=== PATIENT | female | born 1970 | race Caucasian/White ===

== ENCOUNTER 2021-12-13 21:48 | Emergency (ER) | payer OTHER ==
[2021-12-13 21:54] VITALS: RESP 20; TEMP 98.2; BMI 29.3
[2021-12-13] MEDS ORDERED: CLOPIDOGREL BISULFATE 300 MG TABLET PO ONE (22:08)
[2021-12-13] MEDS ORDERED: amLODIPine BESYLATE 10 MG TABLET (FP) PO ONE (22:18)
[2021-12-13] MEDS ORDERED: ONDANSETRON 4 MG/2 ML VIAL IVPUSH ONE (22:29)
[2021-12-13] MEDS ORDERED: IBUPROFEN 600 MG TABLET (FP) PO ONE ×2 (22:48→23:19)
[2021-12-13] MEDS ORDERED: METHOCARBAMOL 500 MG TABLET PO ONE (22:48)
[2021-12-13] MEDS ORDERED: METOCLOPRAMIDE HCL INJECTION 10 MG/2 ML VIAL IVPB ONE (22:51)
[2021-12-13 23:01] VITALS: BP 135/86; PULSE 85
[2021-12-13] MEDS ORDERED: METHOCARBAMOL 500 MG TABLET ONE (23:19)
[2021-12-13] MEDS ORDERED: METOCLOPRAMIDE HCL INJECTION 10 MG/2 ML VIAL ONE (23:19)
[2021-12-14] MEDS ORDERED: METOCLOPRAMIDE HCL INJECTION 10 MG/2 ML VIAL IM ONE (00:03)
[2021-12-14 00:05] LABS: BASO % 0.4 % (0-2.0); EOS % 1.6 % (0-4.5); HEMOGLOBIN 12.9 GM/dL (10.7-15.3); LYMPH % 27.7 % (8-40); MCH 28.1 pg (25.7-33.7); MCHC 33.9 g/dl (32.0-36.0); MEAN PLT VOLUME 8.9 fl (7.5-11.1); MONO % 9.1 % (3.8-10.2); NEUT % 61.2 % (42.8-82.8); PLATELET COUNT 279 10^3/uL (134-434); RBC 4.58 M/mm3 (3.60-5.2); RDW 13.4 % (11.6-15.6); WHITE BLOOD COUNT 8.3 K/mm3 (4.0-10.0)
[2021-12-14 00:26] LABS: CALCIUM 9.1 mg/dL (8.5-10.1)
[2021-12-14 00:27] LABS: ALBUMIN 3.9 g/dl (3.4-5.0); BLOOD UREA NITROGEN 12.5 mg/dL (7-18)
[2021-12-14 00:30] LABS: CREATININE 0.8 mg/dL (0.55-1.3); INR 0.92 (0.83-1.09); PROTHROMBIN TIME (PATIENT) 10.6 SEC (9.7-13.0)
[2021-12-14 00:31] LABS: TOT PROT 7.5 g/dl (6.4-8.2)
[2021-12-14 00:41] LABS: BILIRUBIN,TOTAL 0.3 mg/dL (0.2-1)
== END 2021-12-14 01:05 | disposition home or self-care (01) ==
LOC: JER 21:48
PROC: 3E033GC Introduction of Other Therapeutic Substance into Peripheral Vein, Percutaneous Approach (ICD-10-PCS; principal; 2021-12-13)
PROC: 3E023GC Introduction of Other Therapeutic Substance into Muscle, Percutaneous Approach (ICD-10-PCS; 2021-12-13)
DX: R51.9 Headache, unspecified (principal); R06.02 Shortness of breath; M79.602 Pain in left arm; R07.9 Chest pain, unspecified
CPT/HCPCS: 36415; 71046-TC-FY; 80053; 84439; 84443; 84484; 85025; 85610; 93005; 93010; 99285-25

== ENCOUNTER 2022-01-24 16:13 | Inpatient (IN) | payer OTHER ==
[2022-01-24 16:50] VITALS: BMI 30.9
[2022-01-24] MEDS ORDERED: DEXAMETHASONE SOD PHOSPHATE 10 MG/1 ML VIAL IVPUSH ONE (17:03)
[2022-01-24] MEDS ORDERED: LACTATED RINGERS SOLUTION 1000 ML INFUS.BAG IV ONE (17:07)
[2022-01-24] MEDS ORDERED: KETOROLAC TROMETHAMINE 15 MG/ML VIAL IVPUSH ONE (17:07)
[2022-01-24] MEDS ORDERED: MAGNESIUM SULF 50% (8.12 MEQ/2 ML-1 GM VIAL) IVPB ONE (17:07)
[2022-01-24] MEDS ORDERED: ALBUTEROL SO4 2.5/IPRATROPIUM 0.5 INH SOL 3 ML VIAL.NEB. NEB ONE (17:08)
[2022-01-24] MEDS ORDERED: DEXAMETHASONE SOD PHOSPHATE 10 MG/1 ML VIAL ONE (17:08)
[2022-01-24] MEDS: ALBUTEROL SO4 2.5/IPRATROPIUM 0.5 INH SOL 3 ML VIAL.NEB. NEB SCH ×3 (17:32→18:53)
[2022-01-24] MEDS ORDERED: ACETAMINOPHEN 1000 MG/100 ML BAG IVPB ONE (17:37)
[2022-01-24] MEDS ORDERED: MAGNESIUM 1GM/D5W - 1 GM/100 ML IVPB IVPB ONE (17:38)
[2022-01-24] MEDS ORDERED: KETOROLAC TROMETHAMINE 15 MG/ML VIAL ONE (17:38)
[2022-01-24 18:06] LABS: VENOUS BASE EXCESS 1.8 mmol/L (-2-2); VENOUS O2 SATURATION 85.8 % (70-80); VENOUS PCO2 41.1 mmHg (38-52); VENOUS PH 7.425 (7.310-7.410)
[2022-01-24 18:11] LABS: BASO % 0.4 % (0-2.0); EOS % 1.5 % (0-4.5); HEMATOCRIT 39.7 % (32.4-45.2); HEMOGLOBIN 13.5 GM/dL (10.7-15.3); LYMPH % 16.5 % (8-40); MCH 28.3 pg (25.7-33.7); MCHC 33.9 g/dl (32.0-36.0); MEAN CELL VOLUME 83.3 fl (80-96); MEAN PLT VOLUME 8.6 fl (7.5-11.1); MONO % 11.6 % (3.8-10.2); PLATELET COUNT 273 10^3/uL (134-434); RBC 4.77 M/mm3 (3.60-5.2); RDW 13.8 % (11.6-15.6); WHITE BLOOD COUNT 7.3 K/mm3 (4.0-10.0)
[2022-01-24 18:17] LABS: INR 0.97 (0.83-1.09); PROTHROMBIN TIME (PATIENT) 11.1 SEC (9.7-13.0)
[2022-01-24 18:20] LABS: ACTIVATED PTT 31.3 SECONDS (25.2-36.5)
[2022-01-24 18:33] LABS: CHLORIDE 102 mmol/L (98-107); SODIUM 136 mmol/L (136-145)
[2022-01-24 18:36] LABS: ALBUMIN 4.2 g/dl (3.4-5.0); ANION GAP 9 MMOL/L (8-16); BLOOD UREA NITROGEN 9.6 mg/dL (7-18); CO2 26 mmol/L (21-32); GLUCOSE,RANDOM 99 mg/dL (74-106)
[2022-01-24 18:39] LABS: CREATININE 0.8 mg/dL (0.55-1.3); SGOT/AST 45 U/L (15-37); SGPT/ALT 53 U/L (13-61)
[2022-01-24 18:41] LABS: BILIRUBIN,TOTAL 0.3 mg/dL (0.2-1)
[2022-01-24 18:42] LABS: ALK PHOS 91 U/L (45-117)
[2022-01-24] MEDS ORDERED: ACETAMINOPHEN INJECTION 100 ML IVPB ONE (18:54)
[2022-01-24] MEDS ORDERED: ALBUTEROL SO4 HFA INHALER IH PRN (22:07)
[2022-01-25] MEDS ORDERED: ACETAMINOPHEN 500 MG TABLET (FP) PO PRN (00:41)
[2022-01-25 06:00] LABS: EPI CELLS >36 /uL (0-25.1); HYALINE CASTS 5 /uL (0-3.1); URINE APPEARANCE CLOUDY; URINE BACTERIA 3483 /uL (0-1359); URINE BILIRUBIN NEGATIVE (NEGATIVE); URINE COLOR YELLOW; URINE GLUCOSE (UA) 3+ (NEGATIVE); URINE KETONE TRACE (NEGATIVE); URINE LEUK ESTERASE NEGATIVE (NEGATIVE); URINE NITRITE NEGATIVE (NEGATIVE); URINE PROTEIN TRACE (NEGATIVE); URINE RBC 14 /uL (0-23.9); URINE UROBILINOGEN 0.2 mg/dL (0.2-1.0); URINE WBC 16 /uL (0-25.8)
[2022-01-25] MEDS ORDERED: LEVOTHYROXINE NA 88 MCG TABLET (FP) ONE (07:20)
[2022-01-25] MEDS: LEVOTHYROXINE NA 88 MCG TABLET (FP) PO SCH (07:40)
[2022-01-25] MEDS ORDERED: ALBUTEROL SO4 2.5/IPRATROPIUM 0.5 INH SOL 3 ML VIAL.NEB. NEB ONE ×4 (07:45→22:52)
[2022-01-25 08:07] LABS: BASO % 0.3 % (0-2.0); HEMATOCRIT 37.2 % (32.4-45.2); HEMOGLOBIN 12.3 GM/dL (10.7-15.3); LYMPH % 9.8 % (8-40); MCH 27.7 pg (25.7-33.7); MCHC 33.1 g/dl (32.0-36.0); MEAN CELL VOLUME 83.7 fl (80-96); MEAN PLT VOLUME 9.4 fl (7.5-11.1); MONO % 3.1 % (3.8-10.2); NEUT % 86.8 % (42.8-82.8); PLATELET COUNT 282 10^3/uL (134-434); RBC 4.45 M/mm3 (3.60-5.2); WHITE BLOOD COUNT 7.5 K/mm3 (4.0-10.0)
[2022-01-25] MEDS: ALBUTEROL SO4 2.5/IPRATROPIUM 0.5 INH SOL 3 ML VIAL.NEB. NEB SCH ×4 (08:11→22:56)
[2022-01-25 08:38] LABS: CALCIUM 8.7 mg/dL (8.5-10.1)
[2022-01-25 08:39] LABS: ALBUMIN 3.8 g/dl (3.4-5.0); BLOOD UREA NITROGEN 14.8 mg/dL (7-18); MAGNESIUM 2.6 mg/dL (1.8-2.4)
[2022-01-25 08:41] LABS: CREATININE 0.7 mg/dL (0.55-1.3); PHOSPHOROUS 2.4 mg/dL (2.5-4.9)
[2022-01-25 08:42] LABS: BILIRUBIN,TOTAL 0.7 mg/dL (0.2-1)
[2022-01-25 08:44] LABS: TOT PROT 7.2 g/dl (6.4-8.2)
[2022-01-25] MEDS ORDERED: ENOXAPARIN NA (PORCINE) 40 MG/0.4 ML DISP.SYRIN SQ ONE (08:55)
[2022-01-25] MEDS ORDERED: amLODIPine BESYLATE 5 MG TABLET (FP) ONE (08:55)
[2022-01-25] MEDS: ENOXAPARIN NA (PORCINE) 40 MG/0.4 ML DISP.SYRIN SQ SCH (10:13)
[2022-01-25] MEDS: amLODIPine BESYLATE 5 MG TABLET (FP) PO SCH (10:13)
[2022-01-25] MEDS: BUDESONIDE/FORMETEROL FUMARATE 80/4.5 mcg INHALER IH SCH ×2 (11:07→22:56)
[2022-01-25] MEDS ORDERED: predniSONE 20 MG TABLET (UD) ONE (16:16)
[2022-01-25] MEDS ORDERED: predniSONE 20 MG TABLET (UD) PO SCH (17:00)
[2022-01-25] MEDS ORDERED: ROSUVASTATIN CA 20 MG TABLET ONE (22:52)
[2022-01-25] MEDS: ROSUVASTATIN CA 20 MG TABLET PO SCH (22:56)
[2022-01-26] MEDS: LEVOTHYROXINE NA 88 MCG TABLET (FP) PO SCH (06:11)
[2022-01-26 07:56] LABS: HEMATOCRIT 35.8 % (32.4-45.2); HEMOGLOBIN 12.1 GM/dL (10.7-15.3); MCH 28.5 pg (25.7-33.7); MCHC 33.8 g/dl (32.0-36.0); MEAN CELL VOLUME 84.2 fl (80-96); MEAN PLT VOLUME 8.9 fl (7.5-11.1); PLATELET COUNT 281 10^3/uL (134-434); RBC 4.24 M/mm3 (3.60-5.2); RDW 14.1 % (11.6-15.6); WHITE BLOOD COUNT 10.2 K/mm3 (4.0-10.0)
[2022-01-26 08:16] LABS: BLOOD UREA NITROGEN 21.7 mg/dL (7-18); CALCIUM 8.6 mg/dL (8.5-10.1)
[2022-01-26 08:20] LABS: CREATININE 0.8 mg/dL (0.55-1.3)
[2022-01-26] MEDS: ALBUTEROL SO4 2.5/IPRATROPIUM 0.5 INH SOL 3 ML VIAL.NEB. NEB SCH ×4 (09:06→21:09)
[2022-01-26] MEDS: amLODIPine BESYLATE 5 MG TABLET (FP) PO SCH (09:21)
[2022-01-26] MEDS: ENOXAPARIN NA (PORCINE) 40 MG/0.4 ML DISP.SYRIN SQ SCH (09:21)
[2022-01-26] MEDS: BUDESONIDE/FORMETEROL FUMARATE 80/4.5 mcg INHALER IH SCH ×2 (10:18→21:30)
[2022-01-26] MEDS ORDERED: DEXAMETHASONE 4 MG TABLET (FP) PO SCH (12:45)
[2022-01-26] MEDS ORDERED: methylPREDNISolone NA SUCC 40 MG/1 ML VIAL IVPUSH SCH (15:00)
[2022-01-26] MEDS: guaiFENesin/CODEINE 5 ML UNIT-DOSE CUPS PO PRN ×2 (15:11→21:30)
[2022-01-26] MEDS: methylPREDNISolone NA SUCC 40 MG/1 ML VIAL IVPUSH SCH (17:32)
[2022-01-26] MEDS ORDERED: DOXYCYCLINE HYCLATE 100 MG CAPSULE PO SCH (18:00)
[2022-01-26] MEDS: ROSUVASTATIN CA 20 MG TABLET PO SCH (21:30)
[2022-01-27] MEDS: LEVOTHYROXINE NA 88 MCG TABLET (FP) PO SCH (06:15)
[2022-01-27] MEDS: methylPREDNISolone NA SUCC 40 MG/1 ML VIAL IVPUSH SCH (06:15)
[2022-01-27] MEDS: ALBUTEROL SO4 2.5/IPRATROPIUM 0.5 INH SOL 3 ML VIAL.NEB. NEB SCH ×3 (08:01→15:49)
[2022-01-27 08:06] LABS: HEMATOCRIT 35.7 % (32.4-45.2); HEMOGLOBIN 12.2 GM/dL (10.7-15.3); MCH 28.9 pg (25.7-33.7); MCHC 34.2 g/dl (32.0-36.0); MEAN CELL VOLUME 84.4 fl (80-96); MEAN PLT VOLUME 8.7 fl (7.5-11.1); PLATELET COUNT 302 10^3/uL (134-434); RBC 4.23 M/mm3 (3.60-5.2); RDW 13.6 % (11.6-15.6); WHITE BLOOD COUNT 10.6 K/mm3 (4.0-10.0)
[2022-01-27 08:22] LABS: BLOOD UREA NITROGEN 20.4 mg/dL (7-18); CALCIUM 8.6 mg/dL (8.5-10.1)
[2022-01-27 08:26] LABS: CREATININE 0.7 mg/dL (0.55-1.3)
[2022-01-27] MEDS: amLODIPine BESYLATE 5 MG TABLET (FP) PO SCH (09:42)
[2022-01-27] MEDS: ENOXAPARIN NA (PORCINE) 40 MG/0.4 ML DISP.SYRIN SQ SCH (09:42)
[2022-01-27] MEDS: BUDESONIDE/FORMETEROL FUMARATE 80/4.5 mcg INHALER IH SCH (09:42)
[2022-01-27 11:59] VITALS: RESP 20
[2022-01-27 14:22] VITALS: BP 122/77; PULSE 100; TEMP 98.2
== END 2022-01-27 16:42 | disposition home or self-care (01) | DRG 141 ==
LOC: JER 16:13 → INTOOBSV 18:55 → JERBED 18:55 → J4S 01-25 23:23 → OBSVTOIN 01-26 14:02
PROVIDERS: ADMIT Internal Medicine; ATTEND Internal Medicine
DX: J45.901 Unspecified asthma with (acute) exacerbation (principal); E03.9 Hypothyroidism, unspecified; I10 Essential (primary) hypertension; E78.5 Hyperlipidemia, unspecified; B97.4 Respiratory syncytial virus as the cause of diseases classified elsewhere; E05.90 Thyrotoxicosis, unspecified without thyrotoxic crisis or storm
CPT/HCPCS: 0241U-QW; 36415; 71045-TC-FY; 80048; 80053; 81003; 82550; 82553; 82803; 83036; 83605; 83735; 84100; 84443; 84484; 85025; 85027; 85610; 85730; 86850; 86900; 86901; 87040; 87086; 93005; 93010; 94640; 99285-25; G0378; J1100

== ENCOUNTER 2022-07-10 20:20 | Emergency (ER) | payer OTHER ==
[2022-07-10 20:25] VITALS: BMI 30.2
[2022-07-10] MEDS ORDERED: SODIUM CHLORIDE 0.9% 500 ML INFUS.BAG IV ONE (21:30)
[2022-07-10] MEDS ORDERED: ACETAMINOPHEN 1000 MG/100 ML BAG IVPB ONE (21:30)
[2022-07-10] MEDS ORDERED: MAG HYDROX/AL HYDROX/SIMETH 30 ML UNIT-DOSE CUP PO ONE (21:30)
[2022-07-10] MEDS ORDERED: FAMOTIDINE 20 MG/50 ML IVPB 20 MG/50 ML MG IVPB ONE ×2 (21:30→21:55)
[2022-07-10 21:51] LABS: BASO % 0.6 % (0-2.0); EOS % 3.4 % (0-4.5); HEMATOCRIT 38.3 % (32.4-45.2); HEMOGLOBIN 13.2 GM/dL (10.7-15.3); MCHC 34.6 g/dl (32.0-36.0); MEAN CELL VOLUME 80.9 fl (80-96); MEAN PLT VOLUME 9.4 fl (7.5-11.1); MONO % 6.7 % (3.8-10.2); NEUT % 68.3 % (42.8-82.8); PLATELET COUNT 272 10^3/uL (134-434); RBC 4.73 M/mm3 (3.60-5.2); RDW 13.4 % (11.6-15.6)
[2022-07-10] MEDS ORDERED: ACETAMINOPHEN INJECTION 100 ML IVPB ONE (21:54)
[2022-07-10] MEDS ORDERED: MAG HYDROX/AL HYDROX/SIMETH 30 ML UNIT-DOSE CUP ONE (21:55)
[2022-07-10 22:25] LABS: CALCIUM 9.4 mg/dL (8.5-10.1)
[2022-07-10 22:26] LABS: ALBUMIN 4.2 g/dl (3.4-5.0); BLOOD UREA NITROGEN 13.7 mg/dL (7-18); MAGNESIUM 2.2 mg/dL (1.8-2.4)
[2022-07-10 22:30] LABS: CREATININE 0.9 mg/dL (0.55-1.3)
[2022-07-10 22:32] LABS: BILIRUBIN,TOTAL 0.3 mg/dL (0.2-1)
[2022-07-10 22:44] LABS: EPI CELLS >36 /uL (0-25.1); HYALINE CASTS 0 /uL (0-3.1); URINE APPEARANCE TURBID; URINE BACTERIA 961 /uL (0-1359); URINE BILIRUBIN NEGATIVE (NEGATIVE); URINE COLOR YELLOW; URINE GLUCOSE (UA) NEGATIVE (NEGATIVE); URINE KETONE NEGATIVE (NEGATIVE); URINE LEUK ESTERASE NEGATIVE (NEGATIVE); URINE NITRITE NEGATIVE (NEGATIVE); URINE PROTEIN NEGATIVE (NEGATIVE); URINE RBC 51 /uL (0-23.9); URINE UROBILINOGEN 0.2 mg/dL (0.2-1.0); URINE WBC 17 /uL (0-25.8)
[2022-07-11 01:52] VITALS: BP 118/52; PULSE 78; RESP 18; TEMP 98.1
== END 2022-07-11 04:15 | disposition home or self-care (01) ==
LOC: JER 20:20
PROC: 3E033GC Introduction of Other Therapeutic Substance into Peripheral Vein, Percutaneous Approach (ICD-10-PCS; principal; 2022-07-10)
PROC: 3E033NZ Introduction of Analgesics, Hypnotics, Sedatives into Peripheral Vein, Percutaneous Approach (ICD-10-PCS; 2022-07-10)
DX: R10.13 Epigastric pain (principal); R11.2 Nausea with vomiting, unspecified; R19.7 Diarrhea, unspecified
CPT/HCPCS: 36415; 74177-TC; 76705-TC; 80053; 81003; 83605; 83690; 83735; 85025; 93005; 93010; 99285-25

== ENCOUNTER 2023-03-05 18:13 | Observation (INO) | payer OTHER ==
[2023-03-05] MEDS ORDERED: FAMOTIDINE 20 MG/50 ML IVPB 20 MG/50 ML MG IVPB ONE ×2 (19:54→20:57)
[2023-03-05] MEDS ORDERED: LACTATED RINGERS SOLUTION 1000 ML INFUS.BAG IV ONE (19:54)
[2023-03-05] MEDS ORDERED: ONDANSETRON 4 MG/2 ML VIAL IVPUSH ONE ×2 (19:54→21:07)
[2023-03-05 20:34] LABS: BASO % 0.3 % (0-2.0); EOS % 0.2 % (0-4.5); HEMATOCRIT 42.8 % (32.4-45.2); LYMPH % 3.8 % (8-40); MCH 27.5 pg (25.7-33.7); MCHC 32.7 g/dl (32.0-36.0); MEAN CELL VOLUME 84.2 fl (80-96); MEAN PLT VOLUME 9.6 fl (7.5-11.1); MONO % 2.8 % (3.8-10.2); NEUT % 92.9 % (42.8-82.8); PLATELET COUNT 242 10^3/uL (134-434); RBC 5.08 M/mm3 (3.60-5.2); RDW 13.3 % (11.6-15.6); WHITE BLOOD COUNT 11.1 K/mm3 (4.0-10.0)
[2023-03-05 20:47] LABS: EPI CELLS >36 /uL (0-25.1); HYALINE CASTS 7 /uL (0-3.1); URINE APPEARANCE CLOUDY; URINE BACTERIA 4791 /uL (0-1359); URINE BILIRUBIN NEGATIVE (NEGATIVE); URINE COLOR YELLOW; URINE GLUCOSE (UA) NEGATIVE (NEGATIVE); URINE KETONE 1+ (NEGATIVE); URINE LEUK ESTERASE NEGATIVE (NEGATIVE); URINE NITRITE NEGATIVE (NEGATIVE); URINE PROTEIN 1+ (NEGATIVE)
[2023-03-05 20:53] LABS: POTASSIUM 4.3 mmol/L (3.5-5.1)
[2023-03-05 20:56] LABS: BLOOD UREA NITROGEN 13.2 mg/dL (7-18)
[2023-03-05 20:57] LABS: CREATININE 0.8 mg/dL (0.55-1.3)
[2023-03-05] MEDS ORDERED: ONDANSETRON 4 MG/2 ML VIAL ONE (20:57)
[2023-03-05 21:00] LABS: BILIRUBIN,TOTAL 0.5 mg/dL (0.2-1); TOT PROT 7.9 g/dl (6.4-8.2)
[2023-03-05] MEDS ORDERED: METOCLOPRAMIDE HCL INJECTION 10 MG/2 ML VIAL IVPUSH ONE (21:02)
[2023-03-05 22:53] LABS: URINE RBC 191.9 /uL (0-23.9); URINE WBC 59.2 /uL (0-25.8)
[2023-03-06] MEDS ORDERED: LACTATED RINGERS SOLUTION 1000 ML INFUS.BAG IV ONE (01:05)
[2023-03-06] MEDS ORDERED: CEFTRIAXONE 1 GM/50 ML BAG ONE (01:09)
[2023-03-06] MEDS ORDERED: ACETAMINOPHEN 1000 MG/100 ML BAG IVPB ONE (01:55)
[2023-03-06] MEDS ORDERED: ACETAMINOPHEN INJECTION 100 ML IVPB ONE (02:17)
[2023-03-06] MEDS ORDERED: KETOROLAC TROMETHAMINE 15 MG/ML VIAL IVPUSH PRN (02:56)
[2023-03-06] MEDS ORDERED: ACETAMINOPHEN 1000 MG/100 ML BAG IVPB PRN (03:02)
[2023-03-06] MEDS: DEXTROSE 5%-NORMAL SALINE 1,000 ML IV SCH (03:21)
[2023-03-06 05:46] VITALS: BMI 32.1
[2023-03-06] MEDS ORDERED: ALBUTEROL SO4 0.083% IH SOL 2.5 MG/3 ML VIAL.NEB. NEB PRN (07:52)
[2023-03-06] MEDS: amLODIPine BESYLATE 5 MG TABLET (FP) PO SCH (09:20)
[2023-03-06] MEDS: LEVOTHYROXINE NA 88 MCG TABLET (FP) PO SCH (09:20)
[2023-03-06] MEDS: BUDESONIDE/FORMETEROL FUMARATE 80/4.5 mcg INHALER IH SCH ×2 (09:20→21:46)
[2023-03-06 09:37] LABS: INR 1.12 (0.83-1.09)
[2023-03-06 09:39] LABS: ACTIVATED PTT 27.7 SECONDS (25.2-36.5)
[2023-03-06 09:42] LABS: BASO % 0.2 % (0-2.0); EOS % 0.1 % (0-4.5); HEMATOCRIT 37.1 % (32.4-45.2); HEMOGLOBIN 12.4 GM/dL (10.7-15.3); LYMPH % 19.1 % (8-40); MCH 27.9 pg (25.7-33.7); MCHC 33.5 g/dl (32.0-36.0); MEAN CELL VOLUME 83.2 fl (80-96); MEAN PLT VOLUME 9.5 fl (7.5-11.1); NEUT % 75.6 % (42.8-82.8); PLATELET COUNT 227 10^3/uL (134-434); RBC 4.45 M/mm3 (3.60-5.2); RDW 13.4 % (11.6-15.6); WHITE BLOOD COUNT 6.8 K/mm3 (4.0-10.0)
[2023-03-06] MEDS ORDERED: CEFTRIAXONE 1 GM in DEXTROSE 5%-WATER - 50 ML IVPB SCH (10:00)
[2023-03-06 10:35] LABS: POTASSIUM 3.4 mmol/L (3.5-5.1)
[2023-03-06 10:48] LABS: CALCIUM 7.9 mg/dL (8.5-10.1)
[2023-03-06 10:49] LABS: BLOOD UREA NITROGEN 11.2 mg/dL (7-18); MAGNESIUM 2.2 mg/dL (1.8-2.4)
[2023-03-06 10:51] LABS: CREATININE 0.8 mg/dL (0.55-1.3); PHOSPHOROUS 3.3 mg/dL (2.5-4.9)
[2023-03-06] MEDS ORDERED: POTASSIUM CHLORIDE TABS 20 MEQ TABLET.ER (FP) PO ONE (14:45)
[2023-03-06] MEDS: HEPARIN NA (PORCINE) 5,000 UNITS/ML 1ML VIAL SQ SCH (21:45)
[2023-03-06] MEDS ORDERED: ROSUVASTATIN CA 20 MG TABLET PO SCH (22:00)
[2023-03-07] MEDS: DEXTROSE 5%-NORMAL SALINE 1,000 ML IV SCH (05:21)
[2023-03-07] MEDS: LEVOTHYROXINE NA 88 MCG TABLET (FP) PO SCH (06:34)
[2023-03-07 09:43] VITALS: BP 150/79; PULSE 84; RESP 18; TEMP 98.4
[2023-03-07 09:43] LABS: BASO % 0.5 % (0-2.0); EOS % 2.3 % (0-4.5); HEMATOCRIT 37.4 % (32.4-45.2); HEMOGLOBIN 12.2 GM/dL (10.7-15.3); MCH 27.7 pg (25.7-33.7); MCHC 32.5 g/dl (32.0-36.0); MEAN CELL VOLUME 85.2 fl (80-96); MEAN PLT VOLUME 9.6 fl (7.5-11.1); MONO % 12.3 % (3.8-10.2); NEUT % 49.9 % (42.8-82.8); PLATELET COUNT 219 10^3/uL (134-434); RBC 4.39 M/mm3 (3.60-5.2); RDW 13.5 % (11.6-15.6); WHITE BLOOD COUNT 3.6 K/mm3 (4.0-10.0)
[2023-03-07] MEDS ORDERED: AMOX TR/POT CLAV 875MG/125MG TABLETS (FP) PO SCH ×2 (09:53→17:30)
[2023-03-07] MEDS: amLODIPine BESYLATE 5 MG TABLET (FP) PO SCH (09:58)
[2023-03-07] MEDS: HEPARIN NA (PORCINE) 5,000 UNITS/ML 1ML VIAL SQ SCH (09:58)
[2023-03-07] MEDS: BUDESONIDE/FORMETEROL FUMARATE 80/4.5 mcg INHALER IH SCH (10:00)
[2023-03-07 10:37] LABS: POTASSIUM 4.3 mmol/L (3.5-5.1)
[2023-03-07 10:52] LABS: ALBUMIN 3.4 g/dl (3.4-5.0); CALCIUM 8.4 mg/dL (8.5-10.1); MAGNESIUM 2.3 mg/dL (1.8-2.4)
[2023-03-07 10:54] LABS: CREATININE 0.7 mg/dL (0.55-1.3)
[2023-03-07 10:56] LABS: BILIRUBIN,TOTAL 0.2 mg/dL (0.2-1); TOT PROT 6.7 g/dl (6.4-8.2)
== END 2023-03-07 12:43 | disposition home or self-care (01) ==
LOC: JER 18:13 → INTOOBSV 03-06 02:54 → JERBED 03-06 02:54 → UNDOADMOB 03-06 02:54 → OBSVTOIN 03-06 02:54 → J8W 03-06 05:20 → JERBED 03-06 05:20 → J8W 03-06 15:33
PROVIDERS: ADMIT Internal Medicine; ATTEND Nurse Practitioner Acute Care
PROC: 3E033NZ Introduction of Analgesics, Hypnotics, Sedatives into Peripheral Vein, Percutaneous Approach (ICD-10-PCS; principal; 2023-03-06)
PROC: 3E03329 Introduction of Other Anti-infective into Peripheral Vein, Percutaneous Approach (ICD-10-PCS; 2023-03-06)
PROC: 3E0337Z Introduction of Electrolytic and Water Balance Substance into Peripheral Vein, Percutaneous Approach (ICD-10-PCS; 2023-03-06)
PROC: 3E033GC Introduction of Other Therapeutic Substance into Peripheral Vein, Percutaneous Approach (ICD-10-PCS; 2023-03-06)
PROC: 3E023GC Introduction of Other Therapeutic Substance into Muscle, Percutaneous Approach (ICD-10-PCS; 2023-03-06)
PROC: 3E0333Z Introduction of Anti-inflammatory into Peripheral Vein, Percutaneous Approach (ICD-10-PCS; 2023-03-06)
DX: A41.9 Sepsis, unspecified organism (principal); N39.0 Urinary tract infection, site not specified; R10.30 Lower abdominal pain, unspecified; E03.9 Hypothyroidism, unspecified; E78.5 Hyperlipidemia, unspecified; I10 Essential (primary) hypertension; J45.909 Unspecified asthma, uncomplicated; R00.0 Tachycardia, unspecified; Z29.9 Encounter for prophylactic measures, unspecified; Z90.79 Acquired absence of other genital organ(s); Z88.2 Allergy status to sulfonamides
CPT/HCPCS: 0241U-QW; 36415; 71045-TC-FY; 74177-TC; 80048; 80053; 81003; 83605; 83690; 83735; 84100; 85025; 85610; 85730; 87040; 87077; 87086; 93005; 93010; 96361; 96365; 96372; 96375; 96376; 99285-25; G0378; J1644; Q9967

== ENCOUNTER 2024-07-09 13:50 | Emergency (ER) | payer OTHER ==
[2024-07-09 13:59] VITALS: BP 125/97; PULSE 92; RESP 18; TEMP 98.5; BMI 32.4
[2024-07-09] MEDS ORDERED: ONDANSETRON 4 MG/2 ML VIAL ONE (14:52)
[2024-07-09] MEDS ORDERED: ACETAMINOPHEN INJECTION 100 ML ONE (14:52)
[2024-07-09] MEDS: ONDANSETRON 4 MG/2 ML VIAL IVPUSH ONE (15:23)
[2024-07-09] MEDS: SODIUM CHLORIDE 0.9% 500 ML INFUS.BAG IV ONE (15:23)
[2024-07-09] MEDS: ACETAMINOPHEN 1000 MG/100 ML BAG IVPB ONE (15:23)
[2024-07-09 15:32] LABS: ABSOLUTE IMMATURE GRANULOCYTES 0.02 x10^3/uL (0.0-0.031); BASOPHILS # 0.03 x10^3/uL (0.01-0.08); EOSINOPHIL % 0.9 % (0.7-5.8); EOSINOPHILS # 0.07 x10^3/uL (0.04-0.36); HEMATOCRIT 42.3 % (34.1-44.9); HEMOGLOBIN 13.9 g/dL (11.2-15.7); MCHC 32.9 g/dl (32.2-35.5); MEAN CELL VOLUME 85.6 fl (79.4-94.8); MEAN PLT VOLUME 10.9 fl (9.4-12.3); MONOCYTE # 0.54 x10^3/uL (0.24-0.86); MONOCYTE % 6.9 % (4.7-12.5); PLATELET COUNT 294 x10^3/uL (182-369); RDW 12.1 % (12.3-16.6)
[2024-07-09 15:34] LABS: EPI CELLS 21 /uL (0-25.1); HYALINE CASTS 0 /uL (0-3.1); URINE APPEARANCE CLEAR; URINE BACTERIA 1068 /uL (0-1359); URINE BILIRUBIN NEGATIVE (NEGATIVE); URINE COLOR YELLOW; URINE GLUCOSE (UA) NEGATIVE (NEGATIVE); URINE KETONE NEGATIVE (NEGATIVE); URINE LEUK ESTERASE TRACE (NEGATIVE); URINE NITRITE NEGATIVE (NEGATIVE); URINE PROTEIN NEGATIVE (NEGATIVE); URINE RBC 67 /uL (0-23.9); URINE UROBILINOGEN 0.2 mg/dL (0.2-1.0); URINE WBC 18 /uL (0-25.8)
[2024-07-09 15:45] LABS: POTASSIUM 4.2 mmol/L (3.5-5.1)
[2024-07-09 15:49] LABS: ALBUMIN 4.3 g/dl (3.4-5.0); BLOOD UREA NITROGEN 12.9 mg/dL (7-18); CALCIUM 9.7 mg/dL (8.5-10.1)
[2024-07-09 15:52] LABS: CREATININE 0.7 mg/dL (0.55-1.3)
[2024-07-09 15:54] LABS: BILIRUBIN,TOTAL 0.4 mg/dL (0.2-1); INR 0.97 (0.83-1.09); PROTHROMBIN TIME (PATIENT) 10.6 SEC (9.7-13.0)
[2024-07-09 15:56] LABS: ACTIVATED PTT 31.2 SECONDS (25.2-36.5)
[2024-07-09] MEDS ORDERED: KETOROLAC TROMETHAMINE 15 MG/ML VIAL ONE (17:33)
[2024-07-09] MEDS: KETOROLAC TROMETHAMINE 15 MG/ML VIAL IVPUSH ONE (17:42)
== END 2024-07-09 20:10 | disposition home or self-care (01) ==
LOC: JER 13:50
PROC: 3E033NZ Introduction of Analgesics, Hypnotics, Sedatives into Peripheral Vein, Percutaneous Approach (ICD-10-PCS; principal; 2024-07-09)
PROC: 3E0333Z Introduction of Anti-inflammatory into Peripheral Vein, Percutaneous Approach (ICD-10-PCS; 2024-07-09)
PROC: 3E033GC Introduction of Other Therapeutic Substance into Peripheral Vein, Percutaneous Approach (ICD-10-PCS; 2024-07-09)
DX: R10.11 Right upper quadrant pain (principal); R10.13 Epigastric pain; R11.0 Nausea; R68.83 Chills (without fever); R06.02 Shortness of breath
CPT/HCPCS: 36415; 74176-TC; 76700-TC; 80053; 81003; 83690; 84484; 85025; 85610; 85730; 86850; 86900; 86901; 87077; 87086; 93005; 93010; 99285-25; J0131